=== PATIENT | male | born 1990 | race African-American/Black ===

== ENCOUNTER 2018-10-03 04:19 | Emergency (ER) | payer MEDICAID ==
[~2018-10-03] VITALS: Ht 182.9 cm; Wt 84.0 kg
[2018-10-03] MEDS ORDERED: ONDANSETRON HCL 4MG/2ML INJ IV STA (04:55)
[2018-10-03] MEDS ORDERED: SODIUM CHLORIDE 0.9% 1,000 ML IV ONE (04:55)
[2018-10-03 05:18] LABS: BG BASE EXCESS -1.8 mmol/L (-2.0-2.0); BG CARBOXYHEMOGLOBIN 0.4 % (0.5-1.5); BG DEOXYHEMOGLOBIN 4.3 % (0.0-5.0); BG FRACTION INSPIRED OXYGEN 21; BG HCO3 ACT 22.8 mmol/L (22.0-26.0); BG METHEMOGLOBIN 0.4 % (0.0-1.5); BG OXYGEN SATURATION 95.7 % (92.0-98.5); BG OXYHEMOGLOBIN 94.9 % (94.0-97.0); BG PCO2 38.3 mmHg (35.0-45.0); BG PH 7.392 (7.350-7.450); BG PO2 82.4 mmHg (75.0-100.0); BG SAMPLE SITE RIGHT RADIAL; BG TOTAL HEMOGLOBIN 13.3 g/dL (12.0-18.0); BG VENT MODE ROOM AIR
[2018-10-03 05:37] LABS: HEMATOCRIT. 39.7 % (42.0-52.0); HEMOGLOBIN. 13.3 g/dL (14.0-18.0); MEAN CORPUSCULAR HEMOGLOBIN 30.1 pg (28.0-32.0); MEAN CORPUSCULAR VOLUME 89.8 fL (80.0-94.0); MEAN PLATELET VOLUME 8.2 fl (7.4-10.4); MONOCYTES % 12.2 % (2.0-8.0); PLATELET 222 x1000/uL (130-400); RED BLOOD CELL COUNT 4.42 mill/uL (4.7-6.1); RED CELL DISTRIBUTION WIDTH 14.1 % (11.6-14.6)
[2018-10-03 05:38] LABS: BASOPHILS % 1.2 % (0.0-2.0); EOSINOPHILS % 1.6 % (0.0-5.0)
[2018-10-03 05:43] LABS: CHLORIDE 104 mEq/L (98-107)
[2018-10-03 05:47] LABS: ETHANOL BLOOD < 10 mg/dL
[2018-10-03 11:47] LABS: CLARITY URINE CLEAR (CLEAR); COLOR URINE YELLOW (YELLOW); KETONES URINE NEGATIVE (NEGATIVE); LEUKOCYTE ESTERASE URINE NEGATIVE (NEGATIVE); NITRITE URINE NEGATIVE (NEGATIVE); OCCULT BLOOD URINE NEGATIVE (NEGATIVE); PROTEIN URINE NEGATIVE (NEGATIVE); SPECIFIC GRAVITY URINE 1.016 (1.005-1.030)
[2018-10-03 12:34] LABS: *AMPHETAMINES SCREEN URINE NEGATIVE (NEGATIVE)
[2018-10-03 12:35] LABS: *BARBITURATES SCREEN URINE NEGATIVE (NEGATIVE); *BENZODIAZEPINES SCREEN URINE NEGATIVE (NEGATIVE); *COCAINE SCREEN URINE NEGATIVE (NEGATIVE); METHADONE URINE SCREEN NEGATIVE (NEGATIVE); OPIATES URINE SCREEN NEGATIVE (NEGATIVE); PHENCYCLIDINE URINE SCREEN NEGATIVE (NEGATIVE)
[2018-10-03 12:36] LABS: CANNABINOID URINE SCREEN NEGATIVE (NEGATIVE)
[2018-10-03] MEDS ORDERED: HALOPERIDOL LACTATE 5MG/ML VIAL IM ONE (16:45)
[2018-10-03] MEDS ORDERED: LORAZEPAM 2MG/ML CPJ IM ONE (16:45)
[2018-10-03 20:19] VITALS: BP 119/74
== END 2018-10-03 20:31 | disposition home or self-care (01) ==
LOC: EDBD 04:19 → ER 04:19
DX: T42.6X1A Poisoning by other antiepileptic and sedative-hypnotic drugs, accidental (unintentional), initial encounter (principal); T43.591A Poisoning by other antipsychotics and neuroleptics, accidental (unintentional), initial encounter; G93.40 Encephalopathy, unspecified; R00.0 Tachycardia, unspecified; F20.9 Schizophrenia, unspecified; I95.9 Hypotension, unspecified; R41.82 Altered mental status, unspecified; Y92.89 Other specified places as the place of occurrence of the external cause
CPT/HCPCS: 36415; 36600; 71045; 80053; 80165; 80305; 80307; 80329; 81003; 82375; 82805; 83605; 85025; 93005; 96361; 96374; 99291; G0482; J2405; J7030

== ENCOUNTER 2018-12-16 20:55 | Emergency (ER) | payer MEDICAID | END 2018-12-16 22:52 | disposition left against medical advice (07) | LOC: ER 20:55 | DX: Z53.21 Procedure and treatment not carried out due to patient leaving prior to being seen by health care provider (principal) ==

== ENCOUNTER 2018-12-17 00:26 | Emergency (ER) | payer MEDICAID ==
[~2018-12-17] VITALS: Ht 182.9 cm; Wt 69.0 kg
[2018-12-17 06:55] VITALS: BP 106/61
== END 2018-12-17 07:03 | disposition home or self-care (01) ==
LOC: ER 00:26
DX: F10.129 Alcohol abuse with intoxication, unspecified (principal); F10.10 Alcohol abuse, uncomplicated; R42 Dizziness and giddiness; Y90.0 Blood alcohol level of less than 20 mg/100 ml; Z87.891 Personal history of nicotine dependence
CPT/HCPCS: 99283

== ENCOUNTER 2019-05-14 22:01 | Emergency (ER) | payer MEDICAID ==
[~2019-05-14] VITALS: Ht 172.7 cm; Wt 79.0 kg
[2019-05-14 23:30] LABS: BASOPHILS % 0.6 % (0.0-2.0); EOSINOPHILS % 0.1 % (0.0-5.0); HEMATOCRIT. 46.1 % (42.0-52.0); HEMOGLOBIN. 15.5 g/dL (14.0-18.0); LYMPHOCYTES % 11.5 % (20.0-50.0); MEAN CORPUSCULAR HEMOGLOBIN 30.4 pg (28.0-32.0); MEAN CORPUSCULAR VOLUME 90.7 fL (80.0-94.0); MEAN PLATELET VOLUME 7.7 fl (7.4-10.4); MONOCYTES % 11.7 % (2.0-8.0); NEUTROPHILS % 76.1 % (40.0-76.0); PLATELET 279 x1000/uL (130-400); RED BLOOD CELL COUNT 5.08 mill/uL (4.7-6.1); RED CELL DISTRIBUTION WIDTH 14.3 % (11.6-14.6)
[2019-05-14 23:37] LABS: CHLORIDE 102 mEq/L (98-107)
[2019-05-14 23:43] LABS: ETHANOL BLOOD < 10 mg/dL
[2019-05-15 09:44] LABS: CLARITY URINE CLEAR (CLEAR); COLOR URINE YELLOW (YELLOW); KETONES URINE NEGATIVE (NEGATIVE); LEUKOCYTE ESTERASE URINE NEGATIVE (NEGATIVE); NITRITE URINE NEGATIVE (NEGATIVE); OCCULT BLOOD URINE NEGATIVE (NEGATIVE); PROTEIN URINE NEGATIVE (NEGATIVE); SPECIFIC GRAVITY URINE 1.034 (1.005-1.030)
[2019-05-15 11:30] LABS: *BARBITURATES SCREEN URINE NEGATIVE (NEGATIVE); *BENZODIAZEPINES SCREEN URINE NEGATIVE (NEGATIVE)
[2019-05-15 11:31] LABS: *COCAINE SCREEN URINE NEGATIVE (NEGATIVE); CANNABINOID URINE SCREEN PRESUMTIVE POSITIVE (NEGATIVE); METHADONE URINE SCREEN NEGATIVE (NEGATIVE); OPIATES URINE SCREEN NEGATIVE (NEGATIVE); PHENCYCLIDINE URINE SCREEN NEGATIVE (NEGATIVE)
[2019-05-15 11:32] LABS: *AMPHETAMINES SCREEN URINE NEGATIVE (NEGATIVE)
[2019-05-15 13:01] VITALS: BP 118/73
[2019-05-15] MEDS ORDERED: TRAZODONE HCL 50MG TABLET PO SCH (21:00)
== END 2019-05-15 13:29 | disposition home or self-care (01) ==
LOC: ER 22:01
DX: F20.9 Schizophrenia, unspecified (principal); Z59.0 Homelessness
CPT/HCPCS: 36415; 80305; 80307; 80320; 80329; 81003; 99284; G0480

== ENCOUNTER 2019-08-13 07:52 | Emergency (ER) | payer MEDICAID ==
[~2019-08-13] VITALS: Ht 182.9 cm; Wt 67.0 kg
[2019-08-13] MEDS: ACETAMINOPHEN 325MG TABLET PO ONE ×2 (09:22→09:24)
[2019-08-13] MEDS ORDERED: LORAZEPAM 1MG TABLET PO ONE ×2 (09:30→16:15)
[2019-08-13 11:10] LABS: BASOPHILS % 0.7 % (0.0-2.0); EOSINOPHILS % 0.2 % (0.0-5.0); HEMATOCRIT. 44.5 % (42.0-52.0); HEMOGLOBIN. 15.3 g/dL (14.0-18.0); LYMPHOCYTES % 11.6 % (20.0-50.0); MEAN CORPUSCULAR HEMOGLOBIN 30.2 pg (28.0-32.0); MEAN CORPUSCULAR VOLUME 88.1 fL (80.0-94.0); MEAN PLATELET VOLUME 7.9 fl (7.4-10.4); MONOCYTES % 7.2 % (2.0-8.0); NEUTROPHILS % 80.3 % (40.0-76.0); PLATELET 265 x1000/uL (130-400); RED BLOOD CELL COUNT 5.05 mill/uL (4.7-6.1); RED CELL DISTRIBUTION WIDTH 13.9 % (11.6-14.6)
[2019-08-13 11:13] LABS: CHLORIDE 102 mEq/L (98-107)
[2019-08-13 11:18] LABS: ETHANOL BLOOD < 10 mg/dL
[2019-08-13 11:21] LABS: CLARITY URINE CLEAR (CLEAR); COLOR URINE YELLOW (YELLOW); KETONES URINE 1+ (NEGATIVE); LEUKOCYTE ESTERASE URINE TRACE (NEGATIVE); NITRITE URINE NEGATIVE (NEGATIVE); OCCULT BLOOD URINE NEGATIVE (NEGATIVE); PH URINE 8.5 (4.5-8.0); PROTEIN URINE NEGATIVE (NEGATIVE); SPECIFIC GRAVITY URINE 1.024 (1.005-1.030)
[2019-08-13 11:37] LABS: *AMPHETAMINES SCREEN URINE NEGATIVE (NEGATIVE); *BARBITURATES SCREEN URINE NEGATIVE (NEGATIVE); *BENZODIAZEPINES SCREEN URINE NEGATIVE (NEGATIVE); *COCAINE SCREEN URINE NEGATIVE (NEGATIVE)
[2019-08-13 11:38] LABS: CANNABINOID URINE SCREEN NEGATIVE (NEGATIVE); OPIATES URINE SCREEN NEGATIVE (NEGATIVE); PHENCYCLIDINE URINE SCREEN NEGATIVE (NEGATIVE)
[2019-08-13 11:41] LABS: METHADONE URINE SCREEN NEGATIVE (NEGATIVE)
[2019-08-13] MEDS ORDERED: NITROFURANTOIN MACROCRYSTAL 50MG CAPSULE PO SCH (17:00)
[2019-08-13 19:05] VITALS: BP 118/70
== END 2019-08-13 20:02 ==
LOC: ER 07:59
DX: F23 Brief psychotic disorder (principal)
CPT/HCPCS: 36415; 80305; 80320; 81003; 99285; G0480

== ENCOUNTER 2019-09-01 23:16 | Emergency (ER) | payer MEDICAID ==
[~2019-09-01] VITALS: Ht 182.9 cm; Wt 64.0 kg
[2019-09-02] MEDS ORDERED: IBUPROFEN 600MG TABLET PO STA (04:53)
[2019-09-02 06:09] VITALS: BP 124/84
== END 2019-09-02 06:09 | disposition home or self-care (01) ==
LOC: ER 23:16
DX: M54.9 Dorsalgia, unspecified (principal); G47.00 Insomnia, unspecified
CPT/HCPCS: 99282